=== PATIENT | female | born 1955 ===

== ENCOUNTER 2019-06-24 17:01 | Inpatient (IN) ==
[2019-06-24] MEDS ORDERED: *HR* HYDROmorphone (PF) 1 MG/ML SYRINGE IVP PRN (18:00)
[2019-06-24] MEDS ORDERED: Ondansetron 4 MG/2 ML VIAL IVP PRN (18:18)
[2019-06-24] MEDS ORDERED: *HR* OxyCODONE Immed Rel 5 MG TABLET PO PRN (18:18)
[2019-06-24] MEDS ORDERED: Naloxone 0.4 MG/ML INJ IVP PRN (18:18)
[2019-06-24 18:31] LABS: Hematocrit 37.6 % (35.3-44.9); Hemoglobin 12.4 g/dL (11.5-15.4); Mean Corpuscular Hemoglobin 28.6 pg (28.0-33.3); Mean Corpuscular Volume 86.6 fL (83.0-100.0); Mean Platelet Volume 8.5 fL (9.4-12.4); Platelet Count 193 K/mcL (140-400); Red Blood Count 4.34 M/mcL (3.82-4.97); Red Cell Distribution Width 14.6 % (11.5-14.5); White Blood Count 8.4 K/mcL (4.3-11.1)
[2019-06-24 18:51] LABS: Alanine Aminotransferase 31 Units/L (7-52); Albumin 3.4 g/dL (3.5-5.7); Albumin/Globulin Ratio 1.4 (1.1-2.2); Alkaline Phosphatase 77 Units/L (34-104); Aspartate Amino Transferase 18 Units/L (13-39); BUN/Creatinine Ratio 13 (6-26); Bilirubin,Direct 0.2 mg/dL (0.0-0.2); Bilirubin,Indirect 0.5 mg/dL (0.0-1.2); Bilirubin,Total 0.7 mg/dL (0.3-1.0); Blood Urea Nitrogen 9 mg/dL (8-23); Calcium 8.3 mg/dL (8.6-10.3); Carbon Dioxide 34 mEq/L (23-29); Chloride 98 mEq/L (98-107); Globulin 2.4 g/dL (2.4-3.5); Glucose 194 mg/dL (70-105); Lipase 404 Units/L (11-82); Magnesium 1.8 mg/dL (1.6-2.6); Osmolality,Calculated 292 (280-300); Potassium 2.6 mEq/L (3.5-5.1); Sodium 139 mEq/L (136-145); Total Protein 5.8 g/dL (6.4-8.9); eGFR For African Americans > 60 (> 60); eGFR For Non-African Americans > 60 (> 60)
[2019-06-24 19:42] LABS: Chol/HDL Ratio 6.3 (0-4.9); Cholesterol 175 mg/dL (< 200); HDL Cholesterol 28 mg/dL (40-59); LDL Cholesterol,Calculated 104 mg/dL (0-99); Triglycerides 215 mg/dL (< 150)
[2019-06-24] MEDS: Ketorolac 30 MG/ML VIAL IVP PRN (19:44)
[2019-06-24] MEDS: cefTRIAXone 1,000 MG in Water for inj. (sterile) 10 ML IVP SCH (19:46)
[2019-06-24] MEDS: Ringers Solution, Lactated 1,000 ML IVC SCH (19:50)
[2019-06-25] MEDS: Ringers Solution, Lactated 1,000 ML IVC SCH ×4 (00:50→21:53)
[2019-06-25] MEDS: Nicotine 7 MG PATCH.TD24 TD SCH ×2 (01:19→08:10)
[2019-06-25] MEDS: Ketorolac 30 MG/ML VIAL IVP PRN ×3 (01:48→20:15)
[2019-06-25] MEDS: *HR* Heparin 5,000 UNIT/ML VIAL SQ SCH ×2 (04:20→17:43)
[2019-06-25 06:18] LABS: Basophils # 0.1 K/mcL (0.0-0.2); Basophils % 0.8 %; Eosinophils # 0.3 K/mcL (0.0-0.6); Eosinophils % 4.3 %; Hematocrit 39.9 % (35.3-44.9); Hemoglobin 12.5 g/dL (11.5-15.4); Immature Granulocytes % 0.5 % (0-4); Lymphocytes # 1.6 K/mcL (0.6-4.6); Lymphocytes % 25.4 %; Mean Corpuscular HGB Conc 31.3 g/dL (31.6-35.5); Mean Corpuscular Hemoglobin 27.8 pg (28.0-33.3); Mean Corpuscular Volume 88.9 fL (83.0-100.0); Mean Platelet Volume 8.5 fL (9.4-12.4); Monocytes # 0.5 K/mcL (0.0-1.3); Monocytes % 8.4 %; Neutrophils # 3.8 K/mcL (1.6-8.9); Platelet Count 206 K/mcL (140-400); Red Blood Count 4.49 M/mcL (3.82-4.97); Red Cell Distribution Width 14.6 % (11.5-14.5); Segmented Neutrophils % 60.6 %; White Blood Count 6.3 K/mcL (4.3-11.1)
[2019-06-25 06:37] LABS: BUN/Creatinine Ratio 13 (6-26); Blood Urea Nitrogen 11 mg/dL (8-23); Calcium 8.5 mg/dL (8.6-10.3); Carbon Dioxide 36 mEq/L (23-29); Chloride 100 mEq/L (98-107); Glucose 169 mg/dL (70-105); Magnesium 1.8 mg/dL (1.6-2.6); Osmolality,Calculated 297 (280-300); Phosphorous 2.7 mg/dL (2.7-4.5); Potassium 2.8 mEq/L (3.5-5.1); Sodium 142 mEq/L (136-145); eGFR For African Americans > 60 (> 60); eGFR For Non-African Americans > 60 (> 60)
[2019-06-25] MEDS ORDERED: *HR* HYDROmorphone (PF) 1 MG/ML SYRINGE IVP PRN (09:00)
[2019-06-25] MEDS ORDERED: Potassium Chloride 40 MEQ, Lidocaine 1% 2 ML in 0.9 % Sodium Chloride 500 ML IVPB ONE ×2 (09:12→16:57)
[2019-06-25] MEDS: cefTRIAXone 1,000 MG in Water for inj. (sterile) 10 ML IVP SCH (17:44)
[2019-06-26] MEDS: *HR* Heparin 5,000 UNIT/ML VIAL SQ SCH (04:23)
[2019-06-26] MEDS: Ketorolac 30 MG/ML VIAL IVP PRN ×3 (04:41→20:07)
[2019-06-26 06:30] LABS: Hematocrit 38.5 % (35.3-44.9); Hemoglobin 12.1 g/dL (11.5-15.4); Mean Corpuscular HGB Conc 31.4 g/dL (31.6-35.5); Mean Corpuscular Hemoglobin 28.7 pg (28.0-33.3); Mean Corpuscular Volume 91.2 fL (83.0-100.0); Mean Platelet Volume 8.8 fL (9.4-12.4); Platelet Count 228 K/mcL (140-400); Red Blood Count 4.22 M/mcL (3.82-4.97); Red Cell Distribution Width 14.6 % (11.5-14.5)
[2019-06-26 06:53] LABS: BUN/Creatinine Ratio 10 (6-26); Blood Urea Nitrogen 7 mg/dL (8-23); Calcium 8.3 mg/dL (8.6-10.3); Carbon Dioxide 31 mEq/L (23-29); Chloride 100 mEq/L (98-107); Glucose 196 mg/dL (70-105); Magnesium 1.7 mg/dL (1.6-2.6); Osmolality,Calculated 295 (280-300); Potassium 3.1 mEq/L (3.5-5.1); Sodium 141 mEq/L (136-145); eGFR For African Americans > 60 (> 60); eGFR For Non-African Americans > 60 (> 60)
[2019-06-26] MEDS ORDERED: *HR* FentaNYL (PF) 100 MCG/2 ML VIAL ONE (07:24)
[2019-06-26] MEDS ORDERED: *HR* Propofol 200 MG/20 ML VIAL IVP ONE (07:24)
[2019-06-26] MEDS ORDERED: *HR* Midazolam HCl 2 MG/2 ML VIAL ONE (07:24)
[2019-06-26] MEDS ORDERED: *HR* Atropine Sulfate 8 MG/20 ML VIAL IVP ONE (07:35)
[2019-06-26] MEDS ORDERED: Albuterol 2.5 MG/3 ML NEBULIZER IH ONE (07:36)
[2019-06-26] MEDS ORDERED: Potassium Chloride 40 MEQ, Lidocaine 1% 2 ML in 0.9 % Sodium Chloride 500 ML IVPB ONE ×2 (07:46→09:40)
[2019-06-26] MEDS ORDERED: *HR* HYDROmorphone (PF) 1 MG/ML SYRINGE IVP PRN (07:49)
[2019-06-26] MEDS ORDERED: Dexamethasone 4 MG/ML VIAL ONE (07:53)
[2019-06-26] MEDS ORDERED: Acetaminophen IV 1,000 MG/100 ML INFUS..BTL ONE (07:57)
[2019-06-26] MEDS ORDERED: Ringer's Solution, Lactated 250 ML IV.SOLN IVC SCH (08:00)
[2019-06-26] MEDS ORDERED: Ringers Solution, Lactated 1,000 ML IVC SCH (08:15)
[2019-06-26] MEDS ORDERED: Lidocaine -MPF 2% 2 ML VIAL ONE (08:24)
[2019-06-26] MEDS ORDERED: Ondansetron 4 MG/2 ML VIAL ONE (08:24)
[2019-06-26] MEDS ORDERED: Naloxone 0.4 MG/ML INJ IVP PRN (09:40)
[2019-06-26] MEDS ORDERED: Ondansetron 4 MG/2 ML VIAL IVP PRN (09:40)
[2019-06-26] MEDS: Ringers Solution, Lactated 1,000 ML IVC SCH (14:01)
[2019-06-26] MEDS ORDERED: *HR* Heparin 5,000 UNIT/ML VIAL SQ SCH (18:00)
[2019-06-26] MEDS: cefTRIAXone 1,000 MG in Water for inj. (sterile) 10 ML IVP SCH (18:11)
[2019-06-26] MEDS: Nicotine 7 MG PATCH.TD24 TD SCH (19:11)
[2019-06-26] MEDS ORDERED: Melatonin 3 MG TABLET PO PRN (21:38)
[2019-06-26] MEDS ORDERED: *HR* FentaNYL (PF) 100 MCG/2 ML VIAL IVP ONE (22:42)
[2019-06-27] MEDS ORDERED: Ipratropium/Albuterol Neb 3 ML IH PRN (01:38)
[2019-06-27] MEDS ORDERED: Ipratropium/Albuterol Neb 3 ML ONE (01:45)
[2019-06-27 02:24] LABS: Hematocrit 33.7 % (35.3-44.9); Mean Corpuscular HGB Conc 31.2 g/dL (31.6-35.5); Mean Corpuscular Hemoglobin 27.9 pg (28.0-33.3); Mean Corpuscular Volume 89.6 fL (83.0-100.0); Mean Platelet Volume 9.4 fL (9.4-12.4); Platelet Count 203 K/mcL (140-400); Red Blood Count 3.76 M/mcL (3.82-4.97); Red Cell Distribution Width 14.3 % (11.5-14.5); White Blood Count 6.9 K/mcL (4.3-11.1)
[2019-06-27 02:30] LABS: Hemoglobin 10.5 g/dL (11.5-15.4)
[2019-06-27 02:41] LABS: BUN/Creatinine Ratio 13 (6-26); Blood Urea Nitrogen 14 mg/dL (8-23); Calcium 8.4 mg/dL (8.6-10.3); Carbon Dioxide 28 mEq/L (23-29); Chloride 103 mEq/L (98-107); Glucose 261 mg/dL (70-105); Osmolality,Calculated 298 (280-300); Potassium 3.5 mEq/L (3.5-5.1); Sodium 139 mEq/L (136-145); eGFR For African Americans > 60 (> 60); eGFR For Non-African Americans 51 (> 60)
[2019-06-27] MEDS ORDERED: *HR* FentaNYL (PF) 100 MCG/2 ML VIAL IVP ONE (04:12)
[2019-06-27] MEDS ORDERED: *HR* Dextrose 50 % in Water (Syg) 50 ML SYRINGE IVP PRN (07:46)
[2019-06-27] MEDS ORDERED: D5% in Water 1,000 ML IVC PRN (07:46)
[2019-06-27] MEDS ORDERED: Dextrose Gel 15 GM/37.5 ML TUBE PO PRN ×2 (07:46)
[2019-06-27] MEDS: Nicotine 7 MG PATCH.TD24 TD SCH (08:51)
[2019-06-27] MEDS: Ketorolac 30 MG/ML VIAL IVP PRN ×3 (08:54→22:49)
[2019-06-27] MEDS: Ringers Solution, Lactated 1,000 ML IVC SCH ×2 (10:06→15:15)
[2019-06-27] MEDS: Insulin LISPRO 300 UNITS/3 ML VIAL SQ SCH ×2 (12:37→18:20)
[2019-06-27] MEDS: cefTRIAXone 1,000 MG in Water for inj. (sterile) 10 ML IVP SCH (18:14)
[2019-06-28] MEDS: Ringers Solution, Lactated 1,000 ML IVC SCH ×2 (00:48→12:50)
[2019-06-28 04:11] LABS: Hematocrit 33.9 % (35.3-44.9); Hemoglobin 10.3 g/dL (11.5-15.4); Mean Corpuscular HGB Conc 30.4 g/dL (31.6-35.5); Mean Corpuscular Hemoglobin 28.1 pg (28.0-33.3); Mean Corpuscular Volume 92.6 fL (83.0-100.0); Mean Platelet Volume 8.9 fL (9.4-12.4); Platelet Count 223 K/mcL (140-400); Red Blood Count 3.66 M/mcL (3.82-4.97); White Blood Count 7.2 K/mcL (4.3-11.1)
[2019-06-28 04:33] LABS: BUN/Creatinine Ratio 17 (6-26); Blood Urea Nitrogen 18 mg/dL (8-23); Calcium 8.3 mg/dL (8.6-10.3); Carbon Dioxide 31 mEq/L (23-29); Chloride 104 mEq/L (98-107); Glucose 167 mg/dL (70-105); Osmolality,Calculated 300 (280-300); Potassium 3.2 mEq/L (3.5-5.1); Sodium 142 mEq/L (136-145); eGFR For African Americans > 60 (> 60); eGFR For Non-African Americans 53 (> 60)
[2019-06-28] MEDS: Ketorolac 30 MG/ML VIAL IVP PRN (06:09)
[2019-06-28] MEDS ORDERED: Potassium Chloride Elixir 20 MEQ/15 ML UDC PO ONE (07:51)
[2019-06-28] MEDS: Insulin LISPRO 300 UNITS/3 ML VIAL SQ SCH ×3 (09:00→17:03)
[2019-06-28] MEDS: Nicotine 7 MG PATCH.TD24 TD SCH (09:01)
[2019-06-28] MEDS: *HR* HYDROcodone/Acet 5/325 mg TABLET PO SCH ×4 (09:01→19:59)
[2019-06-28] MEDS: Ipratropium/Albuterol Neb 3 ML IH SCH ×3 (10:40→21:52)
[2019-06-28] MEDS ORDERED: Ringers Solution, Lactated 1,000 ML ONE (12:23)
[2019-06-28] MEDS: Gabapentin 400 MG CAPSULE PO SCH ×2 (15:20→19:59)
[2019-06-28 20:09] VITALS: BP 123/80
[2019-06-29] MEDS: Ringers Solution, Lactated 1,000 ML IVC SCH (03:20)
[2019-06-29] MEDS: Ipratropium/Albuterol Neb 3 ML IH SCH ×2 (03:50→10:40)
[2019-06-29 04:49] LABS: Hemoglobin 10.4 g/dL (11.5-15.4); Mean Corpuscular HGB Conc 30.6 g/dL (31.6-35.5); Mean Corpuscular Hemoglobin 28.2 pg (28.0-33.3); Mean Corpuscular Volume 92.1 fL (83.0-100.0); Mean Platelet Volume 8.6 fL (9.4-12.4); Platelet Count 229 K/mcL (140-400); Red Blood Count 3.69 M/mcL (3.82-4.97); Red Cell Distribution Width 15.4 % (11.5-14.5); White Blood Count 6.5 K/mcL (4.3-11.1)
[2019-06-29 05:09] LABS: BUN/Creatinine Ratio 15 (6-26); Blood Urea Nitrogen 17 mg/dL (8-23); Calcium 8.6 mg/dL (8.6-10.3); Carbon Dioxide 29 mEq/L (23-29); Chloride 104 mEq/L (98-107); Glucose 229 mg/dL (70-105); Magnesium 1.7 mg/dL (1.6-2.6); Osmolality,Calculated 299 (280-300); Potassium 3.6 mEq/L (3.5-5.1); Sodium 140 mEq/L (136-145); eGFR For African Americans > 60 (> 60); eGFR For Non-African Americans 50 (> 60)
[2019-06-29] MEDS: Nicotine 7 MG PATCH.TD24 TD SCH (08:09)
[2019-06-29] MEDS: Gabapentin 400 MG CAPSULE PO SCH (08:10)
[2019-06-29] MEDS: *HR* HYDROcodone/Acet 5/325 mg TABLET PO SCH (08:10)
[2019-06-29] MEDS: Insulin LISPRO 300 UNITS/3 ML VIAL SQ SCH (10:01)
[2019-06-29 21:50] LABS: Calculi Mass 108 mg
== END 2019-06-29 11:06 | disposition home or self-care (01) | DRG 659 ==
LOC: 3ANU → SUATTDRO 17:02
PROVIDERS: ADMIT Internal Medicine Nephrology; ATTEND Internal Medicine

== ENCOUNTER 2019-07-10 18:07 | Inpatient (IN) ==
[2019-07-10] MEDS ORDERED: Naloxone 0.4 MG/ML INJ IVP PRN (20:41)
[2019-07-10] MEDS ORDERED: Ondansetron 4 MG/2 ML VIAL IVP PRN (20:41)
[2019-07-10] MEDS ORDERED: D5% in Water 1,000 ML IVC PRN (20:44)
[2019-07-10] MEDS ORDERED: Dextrose Gel 15 GM/37.5 ML TUBE PO PRN ×2 (20:44)
[2019-07-10] MEDS ORDERED: *HR* Dextrose 50 % in Water (Syg) 50 ML SYRINGE IVP PRN (20:44)
--- NOTE | 2019-07-10 20:49 | Internal Med History&Physical ---
Date of Encounter: 07/10/19 Time of Encounter: 20:35 Internal Medicine - H&P: HPI Chief complaint: Pancreatitis Admitted From: Hospital to Hospital Transfer Plans for Post Hospital Care: Home History of present illness: Ms. Douglas is a 63 year old female Patient states she began having abdominal pain while at rest watching TV. She has a history of pancreatitis, pain is located in the epigastric area and is a burning quality. She also has a history of alcohol use, but states she has not had alcohol in over a week. She was recently here at [facility] and discharged on June 21. She is treated for a kidney stone, pancreatitis and UTI. She was discharged and was to follow-up with urology for stent removal. She came to [facility] for further evaluation. Vital signs at [facility]: Blood pressure 194/103, pulse 94, restaurant rate 18, temperature 97.1, O2 saturation 96% on room air. Labs from [facility]: CBC: White count 7.6, hemoglobin 14.8, platelets 352. BMP: Sodium 137, potassium 3.9, chloride 100, bicarbonate 29, BUS 11, creatinine 0.896, blood sugar 294. Lipase 3199 Amylase 109 Total bilirubin 0.6 ALT 38 AST 26 Alkaline phosphatase 136 Lactic acid 1.7 Urinalysis: White count 1-6, 30 protein, negative blood, negative nitrite, small leukocyte esterase. EKG: Sinus rhythm, rate 93, QTC [address] changes. Patient was given pain medicine as well as antinausea medicine. She was transferred to [facility] for further management. Upon my evaluation, patient states that she is still having abdominal pain. She denies chest pain, diarrhea and constipation. She does have some nausea but has not had any vomiting. Her pain is centered in the epigastric region with some pain in the upper left and upper right regions as well. She has had pain like this in the past with previous episodes of pancreatitis. She states that she drinks about 1 pint of alcohol per week, but has not had any alcohol in over a week. She smokes 1-1/2 packs of cigarettes daily. She declines a nicotine patch. She is a DNR/DNI. Past Med Surg Social Fam HX - Past Medical History Medical history: COPD, hypertension Additional medical history: Lymphoma Psychiatric history: no psych history - Past Surgical History Surgical History: cholecystectomy Additional surgical history: back, herniated naverl, lump on left breast, Saliva gland removal, Lymphoma - Social History Smoking Status: Current every day smoker Packs per day: 1 / Alcohol use: occasionally Drug use: none - Family History Mother Hx Family Cardiac Disorders: Yes Internal Medicine - H&P: Meds Gabapentin 800 mg PO TID 06/24/19 [History] Lisinopril [Zestril] 40 mg PO DAILY 06/24/19 [History] Metoprolol Tartrate 75 mg PO BID 06/24/19 [History] HYDROcodone/Acet 5/325 mg [[place] 5-325 mg] 1 tab PO QID 4 Days #16 tablet 06/29/19 [Rx] Allergy/AdvReac Type Severity Reaction Status Date / Time ibuprofen [From Motrin] Allergy Anaphylaxis Verified 06/24/19 19:03 Iodinated Contrast Media Allergy Unresponsiv Verified 07/10/19 22:41 e prochlorperazine Allergy Swelling Verified 07/10/19 22:41 [From Compazine] of Lip/Tongue/Throat All Systems PM: A 10-system review of systems was performed and is negative for pertinent findings except as documented above in the HPI. - Constitutional Vitals: Temp Pulse Resp BP Pulse Ox 98.3 F 86 15 144/90 96 07/10/19 20:09 07/10/19 20:09 07/10/19 20:09 07/10/19 20:09 07/10/19 20:09 General appearance: Present: cooperative, mild distress, A&O X 3, pleasant, answers questions appropriately Exam: - - Head Head exam: Present: normal inspection - Eye Eye exam: Present: EOMI, normal appearance - Respiratory Respiratory exam: Present: CTAB. Absent: rales, respiratory distress, rhonchi, wheezes - Cardiovascular Cardiovascular exam: Present: RRR. Absent: diastolic murmur, systolic murmur - GI/Abdominal GI/Abdominal exam: Present: normal bowel sounds, soft, tenderness Additional comments: Epigastric tenderness, mild lower abdominal pain with palpation - Extremities Exam Extremities exam: Present: warm, radial pulses palpable and symmetrical. Absent: calf tenderness, pedal edema, tenderness - Neurological Exam Neurological exam: Present: no focal deficits. Absent: motor sensory deficit, facial droop, speech deficit - Skin Skin exam: Present: dry, normal color, warm - Assessment and Plan (1) Pancreatitis Current Visit: No Status: Acute Assessment and plan: Patient presents again with pancreatitis. Significantly elevated lipase from previous level at 3199. No abdominal imaging obtained at [facility]. Patient denies recent alcohol use. Her last drink she says was over a week ago. Does have some abdominal distension as well that she states in not normal. She has regular bowel movements. Obtain abdominal/pelvic CT Nothing by mouth Pain management as needed IV fluid hydration Zofran for nausea as needed Qualifiers: Chronicity: acute Pancreatitis type: idiopathic Acute pancreatitis complication: no infection or necrosis Qualified Code(s): K85.00 - Idiopathic acute pancreatitis without necrosis or infection (2) Hyperglycemia Current Visit: Yes Status: Acute Assessment and plan: Patient has had elevated blood sugar during each of her previous visits. We do not have an A1c on file, patient denies history of diabetes. Check A1c in the morning Subcutaneous insulin as needed Monitor blood sugars every 6 hours (3) S/P ureteral stent placement Current Visit: No Status: Acute Assessment and plan: Patient was scheduled to have a ureteral stent removed tomorrow. Urology consult in the morning (4) Alcohol abuse Current Visit: Yes Status: Acute Assessment and plan: Patient admits to drinking a pint of alcohol weekly, but says she has not had any alcohol for over a week. No signs of withdrawal. Avoid further alcohol use to prevent future pancreatitis episodes (5) Tobacco abuse Current Visit: No Status: Acute Assessment and plan: Patient declines nicotine patch (6) CVD (cardiovascular disease) Current Visit: Yes Status: Acute Assessment and plan: Based on patient's age, lipid panel, history of hypertension, possible diabetes, and smoking history patient has a greater than 20% chance of an adverse cardiovascular event within the next 10 years. Recommend patient start on statin therapy and aspirin at discharge. Follow up A1c in the morning. (7) DVT prophylaxis Current Visit: No Status: Acute Assessment and plan: Subcutaneous heparin - Time Spent With Patient Total time spent is greater than 50% in coordination of care (as documented) at patient's floor/unit and/or counseling patient: Greater than 35 minutes
[2019-07-10] MEDS: 0.9 % Sodium Chloride 1,000 ML IVC SCH (20:57)
[2019-07-10] MEDS ORDERED: Isovue-370 500 ML BOTTLE IVP ONE (22:23)
[2019-07-10] MEDS: Ketorolac 30 MG/ML VIAL IVP PRN (22:45)
[2019-07-11] MEDS: Insulin LISPRO 300 UNITS/3 ML VIAL SQ SCH ×4 (00:54→18:07)
[2019-07-11] MEDS: 0.9 % Sodium Chloride 1,000 ML IVC SCH (04:13)
[2019-07-11 05:09] LABS: Basophils # 0.1 K/mcL (0.0-0.2); Basophils % 1.5 %; Eosinophils # 0.3 K/mcL (0.0-0.6); Eosinophils % 4.1 %; Hematocrit 39.5 % (35.3-44.9); Hemoglobin 12.2 g/dL (11.5-15.4); Immature Granulocytes % 0.4 % (0-4); Lymphocytes # 2.1 K/mcL (0.6-4.6); Lymphocytes % 29.5 %; Mean Corpuscular HGB Conc 30.9 g/dL (31.6-35.5); Mean Corpuscular Hemoglobin 27.2 pg (28.0-33.3); Mean Corpuscular Volume 88.2 fL (83.0-100.0); Monocytes # 0.7 K/mcL (0.0-1.3); Monocytes % 10.2 %; Neutrophils # 3.9 K/mcL (1.6-8.9); Platelet Count 320 K/mcL (140-400); Red Blood Count 4.48 M/mcL (3.82-4.97); Red Cell Distribution Width 14.6 % (11.5-14.5); Segmented Neutrophils % 54.3 %; White Blood Count 7.2 K/mcL (4.3-11.1)
[2019-07-11 05:26] LABS: Alanine Aminotransferase 21 Units/L (7-52); Albumin 3.4 g/dL (3.5-5.7); Albumin/Globulin Ratio 1.6 (1.1-2.2); Alkaline Phosphatase 83 Units/L (34-104); Aspartate Amino Transferase 16 Units/L (13-39); BUN/Creatinine Ratio 18 (6-26); Bilirubin,Total 0.5 mg/dL (0.3-1.0); Blood Urea Nitrogen 14 mg/dL (8-23); Calcium 8.3 mg/dL (8.6-10.3); Carbon Dioxide 27 mEq/L (23-29); Chloride 106 mEq/L (98-107); Globulin 2.1 g/dL (2.4-3.5); Glucose 136 mg/dL (70-105); Osmolality,Calculated 293 (280-300); Potassium 3.3 mEq/L (3.5-5.1); Sodium 140 mEq/L (136-145); Total Protein 5.5 g/dL (6.4-8.9); eGFR For African Americans > 60 (> 60); eGFR For Non-African Americans > 60 (> 60)
--- NOTE | 2019-07-11 07:36 | Urology - Consult Note ---
Date of Encounter: 07/11/19 Time of Encounter: 07:36 - Assessment and Plan (1) Nephrolithiasis Current Visit: No Status: Resolved Assessment and plan: I reviewed the CT scan images. She does have bilateral nonobstructing renal c alculi. I did not appreciate any ureteral calculi. With the current nature of her pain, I suspect her discomfort to be related to acute pancreatitis rather than the urolithiasis. I feel observation is best from a urology standpoint. We will continue to follow the patient while hospitalized. Urology CN:HPI Consult date: 07/11/19 History of present illness: patient known to the urology service. Status post a right ureteroscopic stone extraction recently by Dr. Deluca. Currently admitted with abdominal pain. CT scan shows bilateral nonobstructing stones. No ureteral stones appreciated. She again has acute pancreatitis. She states that the pain is different from previous kidney stone pain. She denies any dysuria or gross hematuria. IMPRESSION: 1. Persistent findings of acute pancreatitis. 2. Bilateral intrarenal calculi with no obstructive uropathy. 3. Diverticulosis without scan evidence for diverticulitis. Past Med Surg Social Fam HX - Past Medical History Medical history: COPD, hypertension Additional medical history: Lymphoma Psychiatric history: no psych history - Past Surgical History Surgical History: cholecystectomy Additional surgical history: back, herniated naverl, lump on left breast, Saliva gland removal, Lymphoma - Social History Smoking Status: Current every day smoker Packs per day: 1 1/2 Alcohol use: occasionally Drug use: none - Family History Mother Hx Family Cardiac Disorders: Yes Medications and Allergies Gabapentin 800 mg PO TID 06/24/19 [History] Lisinopril [Zestril] 40 mg PO DAILY 06/24/19 [History] Metoprolol Tartrate 75 mg PO BID 06/24/19 [History] Allergy/AdvReac Type Severity Reaction Status Date / Time ibuprofen [From Motrin] Allergy Anaphylaxis Verified 06/24/19 19:03 Iodinated Contrast Media Allergy Unresponsiv Verified 07/10/19 22:41 e prochlorperazine Allergy Swelling Verified 07/10/19 22:41 [From Compazine] of Lip/Tongue/Throat Review of Systems - Constitutional fatigue, no fever(s) - EENT Nose, mouth and throat: no dizziness - Cardiovascular no chest pain - Respiratory no cough - Gastrointestinal abdominal pain - Genitourinary Genitourinary: flank pain (Right) - Musculoskeletal back pain - Integumentary no erythema - Neurological confusion - Psychiatric no anxiety - Hematologic/Lymphatic no easy bleeding - Allergic/Immunologic no throat swelling Exam Initial Vital Signs Temp Pulse Resp BP Pulse Ox 98.3 F 86 15 144/90 96 07/10/19 20:09 07/10/19 20:09 07/10/19 20:07/10/19 20:07/10/19 20:09 - General physical appearance Present: well developed, no distress, no pain - Eyes Present: PERRL, conjunctiva is clear - ENT Present: normal nares - Neck Present: no masses - Respiratory Present: normal respiratory effort - Cardiovascular Cardiovascular exam IM: RRR - Abdomen Abdomen: Present: soft, tender (But benign), suprapubic tenderness - Neurologic Present: normal coordination. Absent: disoriented, confused Urology Results - Labs 07/11/19 04:49 07/11/19 04:49 Abnormal lab results MCH 27.2 pg (28.0-33.3) L 07/11/19 04:49 MCHC 30.9 g/dL (31.6-35.5) L 07/11/19 04:49 RDW 14.6 % (11.5-14.5) H 07/11/19 04:49 MPV 9.0 fL (9.4-12.4) L 07/11/19 04:49 Potassium 3.3 mEq/L (3.5-5.1) L 07/11/19 04:49 Glucose 136 mg/dL (70-105) H 07/11/19 04:49 POC Glucose 177 mg/dL (70-99) H 07/11/19 00:45 Calcium 8.3 mg/dL (8.6-10.3) L 07/11/19 04:49 Serum Total Protein 5.5 g/dL (6.4-8.9) L 07/11/19 04:49 Albumin 3.4 g/dL (3.5-5.7) L 07/11/19 04:49 Globulin 2.1 g/dL (2.4-3.5) L 07/11/19 04:49 Diabetes panel 07/11/19 Range/Units 04:49 Sodium 140 (136-145) mEq/L Potassium 3.3 L (3.5-5.1) mEq/L Chloride 106 (98-107) mEq/L Carbon Dioxide 27 (23-29) mEq/L BUN 14 (8-23) mg/dL Creatinine 0.80 (0.60-1.20) mg/dL Glucose 136 H (70-105) mg/dL Calcium 8.3 L (8.6-10.3) mg/dL AST 16 (13-39) Units/L ALT 21 (7-52) Units/L Alkaline Phosphatase 83 (34-104) Units/L Albumin 3.4 L (3.5-5.7) g/dL Calcium panel 07/11/19 Range/Units 04:49 Calcium 8.3 L (8.6-10.3) mg/dL Albumin 3.4 L (3.5-5.7) g/dL Pituitary panel 07/11/19 Range/Units 04:49 Sodium 140 (136-145) mEq/L Potassium 3.3 L (3.5-5.1) mEq/L Chloride 106 (98-107) mEq/L Carbon Dioxide 27 (23-29) mEq/L BUN 14 (8-23) mg/dL Creatinine 0.80 (0.60-1.20) mg/dL Glucose 136 H (70-105) mg/dL Calcium 8.3 L (8.6-10.3) mg/dL Adrenal panel 07/11/19 Range/Units 04:49 Sodium 140 (136-145) mEq/L Potassium 3.3 L (3.5-5.1) mEq/L Chloride 106 (98-107) mEq/L Carbon Dioxide 27 (23-29) mEq/L BUN 14 (8-23) mg/dL Creatinine 0.80 (0.60-1.20) mg/dL Glucose 136 H (70-105) mg/dL Calcium 8.3 L (8.6-10.3) mg/dL Total Bilirubin 0.5 (0.3-1.0) mg/dL AST 16 (13-39) Units/L ALT 21 (7-52) Units/L Alkaline Phosphatase 83 (34-104) Units/L Albumin 3.4 L (3.5-5.7) g/dL All other labs normal. Consult Discharge Plan - Plan Referrals: Milton Deng [Primary Care Provider] -
[2019-07-11] MEDS ORDERED: Potassium Chloride 40 MEQ, Lidocaine 1% 2 ML in 0.9 % Sodium Chloride 500 ML IVPB ONE (07:43)
[2019-07-11 08:36] LABS: Estimated Average Glucose 220 mg/dl
[2019-07-11] MEDS: Ringers Solution, Lactated 1,000 ML IVC SCH ×2 (08:40→18:56)
[2019-07-11] MEDS: Ketorolac 30 MG/ML VIAL IVP PRN ×3 (08:40→23:03)
--- NOTE | 2019-07-11 10:50 | Gastroenterology Consult Note ---
Date of Encounter: 07/11/19 Time of Encounter: 10:45 - Assessment and plan (1) Acute pancreatitis Current Visit: Yes Status: Acute Assessment and plan: Ms. Douglas has history of pancreatitis recently admitted on 06/24/19 for acute pancreatitis Abdominal ultrasound at last admission did not show any biliary dilation does have history of cholecystectomy At outside facility lipase was 3199 CT of the abdomen and pelvis at [facility] shows acute pancreatitis Continue IV fluids with pain management Triglycerides were elevated during last pancreatitis attack Would recommend restarting diet soon as patient can tolerate If diet cannot be restarted in the next 24-48 hours would recommend Dobbhoff for feeding Will check IgG4 and SEFERINO Recommend spirometry to prevent pulmonary sequela Qualifiers: Pancreatitis type: alcohol induced Acute pancreatitis complication: no infection or necrosis Qualified Code(s): K85.20 - Alcohol induced acute pancreatitis without necrosis or infection - Time Spent With Patient Total time spent is greater than 50% in coordination of care (as documented) at patient's floor/unit and/or counseling patient: GI History of Present Illness - Data of Consult Requesting Physician: Mateo La - Consult Narrative History of present illness: Ms. Douglas is a 63 year old female with past medical history of COPD, lymphoma and hypertension who presents to the ED at [facility] complaining of epigastric pain, the pain is described as constant without any radiation. She was recently admitted for pancreatitis on 06/24/19 at that time had abdominal ultrasound which showed no bile duct dilation showed fatty infiltration liver and pancreas could not be visualized due to body habitus. She is complaining of diffuse epigastric pain with nausea denying any emesis. She is additionally denies fever, chills, shortness of breath or chest pain. In the ED showed a CT of the abdomen and pelvis which showed persistent findings of acute pancreatitis. At outside facility her lipase was noted to be 3199. Her white count was 7.6. She reports drinking a pint of liquor 3 days ago and her epigastric pain has been ongoing for 1 week and has worsened in the past 2 days. Past Med Surg Social Fam HX - Past Medical History Medical history: COPD, hypertension Additional medical history: Lymphoma Psychiatric history: no psych history - Past Surgical History Surgical History: cholecystectomy Additional surgical history: back, herniated naverl, lump on left breast, Saliva gland removal, Lymphoma - Social History Smoking Status: Current every day smoker Packs per day: 1 11/03 Alcohol use: occasionally Drug use: none - Family History Mother Hx Family Cardiac Disorders: Yes - Gastrointestinal Gastrointestinal: Present: abdominal pain (epigastric), nausea. Absent: diarrhea, vomiting - EENT Nose, mouth and throat: Absent: dysphagia, sore throat - Cardiovascular Cardiovascular ROS: Absent: chest pain, palpitations - Respiratory Respiratory IM: Absent: cough, dyspnea, hemoptysis - Genitourinary Genitourinary: Absent: change in color, Urinary frequency - Neurological ROS Neurological GI: Absent: confusion, weakness - Musculoskeletal Musculoskeletal ROS GI: Absent: back pain, joint swelling - Integumentary Integumentary GI: Absent: pruritis, rash - Constitutional Vitals: Temp Pulse Resp BP Pulse Ox 98.4 F 68 16 132/75 92 07/11/19 10:29 07/11/19 10:29 07/11/19 10:29 07/11/19 10:29 07/11/19 10:29 - Head Head exam: Present: atraumatic, normal inspection - Eye Eye exam: Present: EOMI, sclera anicteric. Absent: conjunctival injection - ENT ENT exam: Present: mucous membranes moist, normal oropharynx - Neck Neck exam general surgery: Present: full ROM, trachea midline. Absent: tenderness - Respiratory Respiratory exam: Present: CTAB. Absent: rhonchi, wheezes - Cardiovascular Cardiovascular exam: Present: RRR, +S1, +S2 - GI/Abdominal GI/Abdominal exam: Present: normal bowel sounds, soft. Absent: tenderness - Extremities Exam Extremities exam: Present: full ROM, warm. Absent: pedal edema - Psychiatric Psychiatric exam: Present: normal affect, normal mood - Skin Skin exam: Present: dry, intact Results - Labs CBC & Chem 7: 07/11/19 04:49 07/11/19 04:49 Labs: Last Result 07/11/19 04:49 Calcium 8.3 L Entire Visit 07/11/19 07/11/19 04:49 04:49 Hgb 12.2 Hct 39.5 Total Bilirubin 0.5 AST 16 ALT 21 - Impressions Impressions Abdomen/Pelvis CT 07/11/19 00:00 IMPRESSION: 1. Persistent findings of acute pancreatitis. 2. Bilateral intrarenal calculi with no obstructive uropathy. 3. Diverticulosis without scan evidence for diverticulitis. D/ / Javed Johnson MD / Javed Johnson MD Interpreting Provider: Javed Johnson MD Consult Discharge Plan - Plan Referrals: Milton Deng [Primary Care Provider] -
--- NOTE | 2019-07-11 11:24 | Internal Med Progress Note ---
Hospitalist Progress Note - Encounter Date of Encounter: 07/11/19 Time of Encounter: 08:40 - Subjective Interval History: Patient was seen this morning. She is a complaining about epigastric pain. She also referred to a pain in her right flank area. She had no nausea/vomiting or chest pain. She has no fever, chills or night sweats. - Exam Vitals: Temp Pulse Resp BP Pulse Ox 98.4 F 68 16 132/75 92 07/11/19 10:29 07/11/19 10:29 07/11/19 10:29 07/11/19 10:07/11/19 10:29 Exam: General: Patient is alert, oriented 3. mild distress Head: Atraumatic, normal inspection, normocephalic. Eye: EOMI, PERRLA ENT: Mucous membranes moist. Neck: Normal inspection, Respiratory: No respiratory distress, rhonchi, or wheezes noted. Cardiovascular: Regular rate and regular rhythm, GI: Soft, nondistended, normal bowel sounds. mild epigastric tenderness with palpation Extremities:No joint swelling, pedal edema, or tenderness noted. Neurological: Alert, oriented 3, no focal deficits. Psychiatric: normal affect, normal mood. Skin: Dry, intact, warm. Normal color. No rashes. - Assessment and Plan (1) Pancreatitis Current Visit: Yes Status: Acute (2) Tobacco abuse Current Visit: Yes Status: Chronic (3) DVT prophylaxis Current Visit: Yes Status: Acute (4) S/P ureteral stent placement Current Visit: No Status: Chronic (5) Alcohol abuse Current Visit: Yes Status: Acute (6) CVD (cardiovascular disease) Current Visit: Yes Status: Acute (7) Hypokalemia Current Visit: Yes Status: Acute - Summary of Assessment and Plan Summary of Assessment and Plan: Ms. SOTO is a 63 year old female with history of COPD, nephrolithiasis s/p recent ureter stent placement, lymphoma, cholecystectomy, tobacco abuse who came into the hospital from outside facility due to her abdominal pain. She was found to have pancreatitis. Her symptoms are measures following: Acute pancreatitis: 2nd episode in on month - Unknown etiology at this point, Lisinopril ?? etoh?? She drinks 2 pines of etoh a week, no drinks since last week. LFTs, TG and Ca were normal. - GI is consulted for recurrent pancreatitis, keep IVF, pain management with toradol for mild to moderate pain, percocet for severe pain. will start with clear liquid diet as soon as she can tolerate it. Nephrolithiasis: Status post ureteral stent placement last visit, CT scan without hydronephrosis. Urology is following Hypokalemia: - repleted. check BMP tomorrow. T2DM: - Likely new diagnosis, A1c 9.3. On LSSI, oral management as per outpatient provider. COPD: - Not in exacerbation. Tobacco abuse: - Consulted to quit smoking, she does not want nicotine patches DVT prophylaxis: scd - Time Spent with Patient Total time spent is greater than 50% in coordination of care (as documented) at patient's floor/unit and/or counseling patient: Plan of Care Discussed with: patient Internal Medicine: Result - Labs CBC & Chem 7: 07/11/19 04:49 07/11/19 04:49 Labs: Short CBC 07/11/19 Range/Units 04:49 WBC 7.2 (4.3-11.1) K/mcL Hgb 12.2 (11.5-15.4) g/dL Hct 39.5 (35.3-44.9) % Plt Count 320 (140-400) K/mcL Neutrophils # 3.9 (1.6-8.9) K/mcL BMP 07/11/19 04:49 Sodium 140 Potassium 3.3 L Chloride 106 Carbon Dioxide 27 BUN 14 Creatinine 0.80 Glucose 136 H Calcium 8.3 L Liver Function 07/11/19 Range/Units 04:49 Total Bilirubin 0.5 (0.3-1.0) mg/dL AST 16 (13-39) Units/L ALT 21 (7-52) Units/L Alkaline Phosphatase 83 (34-104) Units/L Albumin 3.4 L (3.5-5.7) g/dL - Impressions Impressions Abdomen/Pelvis CT 07/11/19 00:00 IMPRESSION: 1. Persistent findings of acute pancreatitis. 2. Bilateral intrarenal calculi with no obstructive uropathy. 3. Diverticulosis without scan evidence for diverticulitis. D/ / Javed Johnson MD / Javed Johnson MD Interpreting Provider: Javed Johnson MD Consult Discharge Plan - Plan Referrals: Milton Deng [Primary Care Provider] - (1) Pancreatitis Qualifiers: Chronicity: acute Pancreatitis type: idiopathic Acute pancreatitis complication: no infection or necrosis Qualified Code(s): K85.00 - Idiopathic acute pancreatitis without necrosis or infection
[2019-07-11] MEDS: *HR* Heparin 5,000 UNIT/ML VIAL SQ SCH (17:57)
[2019-07-12] MEDS: Insulin LISPRO 300 UNITS/3 ML VIAL SQ SCH ×5 (00:46→21:35)
[2019-07-12 03:19] LABS: Hematocrit 38.7 % (35.3-44.9); Hemoglobin 11.9 g/dL (11.5-15.4); Mean Corpuscular HGB Conc 30.7 g/dL (31.6-35.5); Mean Corpuscular Hemoglobin 27.9 pg (28.0-33.3); Mean Corpuscular Volume 90.8 fL (83.0-100.0); Mean Platelet Volume 9.2 fL (9.4-12.4); Platelet Count 278 K/mcL (140-400); Red Blood Count 4.26 M/mcL (3.82-4.97); Red Cell Distribution Width 14.6 % (11.5-14.5); White Blood Count 5.3 K/mcL (4.3-11.1)
[2019-07-12 03:28] LABS: BUN/Creatinine Ratio 16 (6-26); Blood Urea Nitrogen 13 mg/dL (8-23); Calcium 8.2 mg/dL (8.6-10.3); Carbon Dioxide 25 mEq/L (23-29); Chloride 106 mEq/L (98-107); Glucose 129 mg/dL (70-105); Magnesium 1.7 mg/dL (1.6-2.6); Osmolality,Calculated 290 (280-300); Potassium 3.7 mEq/L (3.5-5.1); Sodium 139 mEq/L (136-145); eGFR For African Americans > 60 (> 60); eGFR For Non-African Americans > 60 (> 60)
[2019-07-12] MEDS: *HR* Heparin 5,000 UNIT/ML VIAL SQ SCH ×2 (05:04→16:38)
[2019-07-12] MEDS: Ringers Solution, Lactated 1,000 ML IVC SCH ×2 (08:00→15:30)
[2019-07-12] MEDS: Ketorolac 30 MG/ML VIAL IVP PRN (08:04)
[2019-07-12] MEDS ORDERED: *HR* LORazepam 2 MG/ML VIAL IVP PRN ×3 (08:32)
[2019-07-12] MEDS ORDERED: Ringers Solution, Lactated 1,000 ML ONE (08:37)
--- NOTE | 2019-07-12 12:09 | Internal Med Progress Note ---
Hospitalist Progress Note - Encounter Date of Encounter: 07/12/19 Time of Encounter: 10:00 - Subjective Interval History: Patient was seen this morning. She is a complaining about abdominal pain that is improving slightly with pain medication. She ate a clear liquid diet yesterday night with dinner and her breathing got worse. She denies any nausea or vomiting. - Exam Vitals: Temp Pulse Resp BP Pulse Ox 98.0 F 62 18 176/90 95 07/12/19 11:40 07/12/19 11:40 07/12/19 11:40 07/12/19 11:40 07/12/19 11:40 Exam: General: Patient is alert, oriented 3. mild distress Head: Atraumatic, normal inspection, normocephalic. Eye: EOMI, PERRLA ENT: Mucous membranes moist. Neck: Normal inspection, Respiratory: No respiratory distress, rhonchi, or wheezes noted. Cardiovascular: Regular rate and regular rhythm, GI: Soft, nondistended, normal bowel sounds. mild epigastric tenderness with palpation. No guarding or rebound. Extremities:No joint swelling, pedal edema, or tenderness noted. Neurological: Alert, oriented 3, no focal deficits. Psychiatric: normal affect, normal mood. Skin: Dry, intact, warm. Normal color. No rashes. - Assessment and Plan (1) Pancreatitis Current Visit: Yes Status: Acute (2) Tobacco abuse Current Visit: Yes Status: Chronic (3) DVT prophylaxis Current Visit: Yes Status: Acute (4) S/P ureteral stent placement Current Visit: No Status: Chronic (5) Alcohol abuse Current Visit: Yes Status: Acute (6) CVD (cardiovascular disease) Current Visit: Yes Status: Acute (7) Hypokalemia Current Visit: Yes Status: Resolved - Summary of Assessment and Plan Summary of Assessment and Plan: Ms. SOOT is a 63 year old female with history of COPD, nephrolithiasis s/p recent ureter stent placement, lymphoma, cholecystectomy, tobacco abuse who came into the hospital from outside facility due to her abdominal pain. She was found to have pancreatitis. Her symptoms are measures following: Acute pancreatitis: 2nd episode in on month - Unknown etiology at this point, Lisinopril ?? etoh?? She drinks 2 pines of etoh a week, no drinks since last week. LFTs, TG and Ca were normal. - GI is consulted for recurrent pancreatitis, keep IVF, pain management with Percocet 10 mg every 6 hours and [place] 5 mg for rate through pain every 4 hours. We will keep her nothing by mouth as she could not tolerate diet. We will try again tomorrow. Etoh abuse: - Last drink was 3-4 days ago. Started her on CIWA protocol. Consulted extensively to quit drinking Fatty liver disease: Likely related to her drinking. Nephrolithiasis: Status post ureteral stent placement last visit, CT scan without hydronephrosis. Urology is following Hypokalemia: repleted. check BMP tomorrow. T2DM: Likely new diagnosis, A1c 9.3. On LSSI, oral management as per outpatient provider. COPD: Not in exacerbation. Tobacco abuse: Consulted to quit smoking, she does not want nicotine patches DVT prophylaxis: scd - Time Spent with Patient Total time spent is greater than 50% in coordination of care (as documented) at patient's floor/unit and/or counseling patient: Plan of Care Discussed with: patient Internal Medicine: Result - Labs CBC & Chem 7: 07/12/19 02:36 07/12/19 02:36 Labs: Short CBC 07/12/19 Range/Units 02:36 WBC 5.3 (4.3-11.1) K/mcL Hgb 11.9 (11.5-15.4) g/dL Hct 38.7 (35.3-44.9) % Plt Count 278 (140-400) K/mcL BMP 07/12/19 02:36 Sodium 139 Potassium 3.7 Chloride 106 Carbon Dioxide 25 BUN 13 Creatinine 0.79 Glucose 129 H Calcium 8.2 L Consult Discharge Plan - Plan Referrals: Milton Deng [Primary Care Provider] - (1) Pancreatitis Qualifiers: Chronicity: acute Pancreatitis type: idiopathic Acute pancreatitis complication: no infection or necrosis Qualified Code(s): K85.00 - Idiopathic acute pancreatitis without necrosis or infection
[2019-07-12] MEDS: *HR* HYDROcodone/Acet 5/325 mg TABLET PO PRN ×3 (12:52→23:59)
[2019-07-12] MEDS ORDERED: Ringers Solution, Lactated 1,000 ML IVC SCH (19:09)
[2019-07-13] MEDS ORDERED: hydrALAZINE 10 MG TABLET PO ONE (00:18)
[2019-07-13] MEDS ORDERED: Ringers Solution, Lactated 1,000 ML IVC SCH (04:43)
[2019-07-13] MEDS: *HR* Heparin 5,000 UNIT/ML VIAL SQ SCH ×2 (05:01→17:27)
[2019-07-13 05:24] LABS: Hematocrit 41.4 % (35.3-44.9); Mean Corpuscular HGB Conc 31.4 g/dL (31.6-35.5); Mean Corpuscular Hemoglobin 27.2 pg (28.0-33.3); Mean Corpuscular Volume 86.6 fL (83.0-100.0); Mean Platelet Volume 8.7 fL (9.4-12.4); Platelet Count 294 K/mcL (140-400); Red Blood Count 4.78 M/mcL (3.82-4.97); Red Cell Distribution Width 14.2 % (11.5-14.5)
[2019-07-13 05:49] LABS: BUN/Creatinine Ratio 10 (6-26); Blood Urea Nitrogen 8 mg/dL (8-23); Calcium 9.1 mg/dL (8.6-10.3); Carbon Dioxide 28 mEq/L (23-29); Chloride 99 mEq/L (98-107); Glucose 115 mg/dL (70-105); Osmolality,Calculated 285 (280-300); Potassium 3.5 mEq/L (3.5-5.1); Sodium 138 mEq/L (136-145); eGFR For African Americans > 60 (> 60); eGFR For Non-African Americans > 60 (> 60)
[2019-07-13] MEDS: Lisinopril 20 MG TABLET PO SCH (07:52)
[2019-07-13] MEDS: *HR* HYDROcodone/Acet 5/325 mg TABLET PO PRN ×3 (07:57→16:58)
[2019-07-13] MEDS: Insulin LISPRO 300 UNITS/3 ML VIAL SQ SCH ×4 (08:00→20:45)
--- NOTE | 2019-07-13 12:53 | Internal Med Progress Note ---
Hospitalist Progress Note - Encounter Date of Encounter: 07/13/19 Time of Encounter: 12:50 - Subjective Interval History: Patient was seen and examined at bedside today. Patient complaining of upper abdominal pain in the epigastric region. Pain is 6-7/10 in severity, aching, non-radiating,worsens with food and relieved with pain medication. She denies any fever and chills. She denies any nausea and vomiting. - Exam Vitals: Temp Pulse Resp BP Pulse Ox 98.0 F 61 15 158/89 96 07/13/19 10:15 07/13/19 10:15 07/13/19 10:15 07/13/19 10:15 07/13/19 10:15 Exam: General: Patient is alert, oriented 3. mild distress Head: Atraumatic, normal inspection, normocephalic. Respiratory: No respiratory distress, rhonchi, or wheezes noted. Cardiovascular: Regular rate and regular rhythm, GI: Soft, nondistended, normal bowel sounds. mild to moderate epigastric tenderness with palpation. No guarding or rebound. Extremities:No joint swelling, pedal edema, or tenderness noted. Neurological: Alert, oriented 3, no focal deficits. Psychiatric: normal affect, normal mood. Skin: Dry, intact, warm. Normal color. No rashes. - Assessment and Plan (1) Pancreatitis Current Visit: Yes Status: Acute Assessment and Plan: Patient presents with abdominal pain and CT scan reveal pancreatitis. This is patient's second episode in one month. - IV hydration - Pain management - We will advance diet as tolerated today. - To need to monitor. If patient does not tolerate by mouth diet and will consider NG tube for feeding. (2) S/P ureteral stent placement Current Visit: No Status: Chronic Assessment and Plan: Patient is status post ureteral stent placement. Urology is following. CT scan did not show any hydronephrosis. (3) Alcohol abuse Current Visit: Yes Status: Acute Assessment and Plan: Patient is on CIWA. We will continue to monitor. (4) Tobacco abuse Current Visit: Yes Status: Chronic Assessment and Plan: Patient declines nicotine patch (5) Hypokalemia Current Visit: Yes Status: Resolved Assessment and Plan: Potassium of 3.4. We will replace and monitor. BMP tomorrow. (6) DM type 2 (diabetes mellitus, type 2) Current Visit: Yes Status: Chronic Assessment and Plan: T Diagnosis. HbA1c of 9.3. Currently patient on sliding scale insulin. We will continue to monitor. Patient will likely need oral medication for diabetes on discharge. (7) DVT prophylaxis Current Visit: Yes Status: Acute Assessment and Plan: Subcutaneous heparin DVT Prophylaxis: SC Heparin - Time Spent with Patient Total time spent is greater than 50% in coordination of care (as documented) at patient's floor/unit and/or counseling patient: 25 - 35 minutes Plan of Care Discussed with: patient Internal Medicine: Result - Labs CBC & Chem 7: 07/13/19 05:12 07/13/19 05:12 Labs: Short CBC 07/13/19 Range/Units 05:12 WBC 6.0 (4.3-11.1) K/mcL Hgb 13.0 (11.5-15.4) g/dL Hct 41.4 (35.3-44.9) % Plt Count 294 (140-400) K/mcL BMP 07/13/19 05:12 Sodium 138 Potassium 3.5 Chloride 99 Carbon Dioxide 28 BUN 8 Creatinine 0.77 Glucose 115 H Calcium 9.1 Consult Discharge Plan - Plan Referrals: Milton Deng [Primary Care Provider] - (1) Pancreatitis Qualifiers: Chronicity: acute Pancreatitis type: idiopathic Acute pancreatitis complication: no infection or necrosis Qualified Code(s): K85.00 - Idiopathic acute pancreatitis without necrosis or infection (6) DM type 2 (diabetes mellitus, type 2) Qualifiers: Diabetes mellitus flatbed stitcher insulin use: without flatbed stitcher use Diabetes mellitus complication status: without complication Qualified Code(s): E11.9 - Type 2 diabetes mellitus without complications
[2019-07-13] MEDS: Pantoprazole 40 MG VIAL IVP SCH (13:54)
[2019-07-14] MEDS: *HR* HYDROcodone/Acet 5/325 mg TABLET PO PRN ×2 (01:12→07:13)
[2019-07-14 03:38] LABS: Basophils # 0.1 K/mcL (0.0-0.2); Eosinophils # 0.2 K/mcL (0.0-0.6); Eosinophils % 4.2 %; Hematocrit 40.7 % (35.3-44.9); Hemoglobin 12.8 g/dL (11.5-15.4); Immature Granulocytes % 0.2 % (0-4); Lymphocytes # 1.5 K/mcL (0.6-4.6); Lymphocytes % 29.3 %; Mean Corpuscular HGB Conc 31.4 g/dL (31.6-35.5); Mean Corpuscular Hemoglobin 27.7 pg (28.0-33.3); Mean Corpuscular Volume 88.1 fL (83.0-100.0); Mean Platelet Volume 8.7 fL (9.4-12.4); Monocytes # 0.6 K/mcL (0.0-1.3); Monocytes % 11.7 %; Neutrophils # 2.7 K/mcL (1.6-8.9); Platelet Count 269 K/mcL (140-400); Red Blood Count 4.62 M/mcL (3.82-4.97); Red Cell Distribution Width 14.4 % (11.5-14.5); Segmented Neutrophils % 53.6 %
[2019-07-14 03:57] LABS: Amylase 32 Units/L (29-103); BUN/Creatinine Ratio 11 (6-26); Blood Urea Nitrogen 10 mg/dL (8-23); Calcium 9.2 mg/dL (8.6-10.3); Carbon Dioxide 28 mEq/L (23-29); Chloride 99 mEq/L (98-107); Glucose 200 mg/dL (70-105); Lipase 169 Units/L (11-82); Osmolality,Calculated 287 (280-300); Potassium 3.3 mEq/L (3.5-5.1); Sodium 136 mEq/L (136-145); eGFR For African Americans > 60 (> 60); eGFR For Non-African Americans > 60 (> 60)
[2019-07-14] MEDS: *HR* Heparin 5,000 UNIT/ML VIAL SQ SCH (05:27)
[2019-07-14 08:07] VITALS: BP 147/87
[2019-07-14] MEDS: Insulin LISPRO 300 UNITS/3 ML VIAL SQ SCH (08:09)
[2019-07-14] MEDS: Lisinopril 20 MG TABLET PO SCH (08:19)
[2019-07-14] MEDS: Pantoprazole 40 MG VIAL IVP SCH (08:19)
--- NOTE | 2019-07-14 09:32 | Discharge Summary ---
- NOTES TO OUTPATIENT PROVIDER Notes to Outpatient Provider: Patient was admitted for acute pancreatitis. Most likely alcohol induced. Follow-up the patient outpatient. Patient will be discharged home in stable condition with pain medication supply for one week. Orders not resulted at time of discharge: Pending orders 07/11/19 15:10 SEFERINO IgG NEY rflx IFA Routine IgG Subclasses 1,2,3,4 Routine Estimated PT Needs at Discharge: None Date of Encounter: 07/14/19 Time of Encounter: 09:27 - Discharge Diagnosis (1) Pancreatitis Priority: Primary Status: Acute Qualifiers: Chronicity: acute Pancreatitis type: idiopathic Acute pancreatitis complication: no infection or necrosis Qualified Code(s): K85.00 - Idiopathic acute pancreatitis without necrosis or infection (2) S/P ureteral stent placement Priority: Secondary Status: Chronic (3) Alcohol abuse Priority: Secondary Status: Acute (4) Tobacco abuse Priority: Secondary Status: Chronic (5) Hypokalemia Priority: Secondary Status: Resolved (6) DM type 2 (diabetes mellitus, type 2) Priority: Secondary Status: Chronic Qualifiers: Diabetes mellitus assistant professor of history insulin use: without assistant professor of history use Diabetes mellitus complication status: without complication Qualified Code(s): E11.9 - Type 2 diabetes mellitus without complications (7) DVT prophylaxis Priority: Secondary Status: Acute Hospital course: Ms. Douglas is a 63 year old female with history of on-call abuse was hospitalized for pancreatitis likely alcohol induced. And improved well over the hospital course. Patient was discharged in stable condition. Patient will discharge on pain medication and proton pump inhibitor. Patient also found to have new onset diabetes while hospitalization. Patient was discharged on one- week supply with metformin. Follow-up with primary care provider within 3 week. Discharge discussed with: patient, nurse, social work, case management - Time Spent with Patient Total time spent providing and/or coordinating discharge services: 35 Time spent: Greater than 30 minutes - Discharge Medications Prescriptions: New metFORMIN [Glucophage] 500 mg PO BIDWM 7 Days #15 tablet HYDROcodone/Acet 5/325 mg [[place] 5-325 mg] 1 tab PO Q6H PRN 7 Days #30 tablet PRN Reason: Breakthrough Pain Omeprazole [PriLOSEC] 40 mg PO DAILY 7 Days #7 cap Continued Metoprolol Tartrate 75 mg PO BID Lisinopril [Zestril] 40 mg PO DAILY Gabapentin 800 mg PO TID PRN PRN Reason: Pain Discontinued cephALEXin [Keflex] 500 mg PO BID Hydrocodone/Acetaminophen [Hydrocodon-Acetaminophen 5-325] 1 tab PO Q6H PRN PRN Reason: Pain Home Medications: Gabapentin 800 mg PO TID PRN 06/24/19 [History] Lisinopril [Zestril] 40 mg PO DAILY 06/24/19 [History] Metoprolol Tartrate 75 mg PO BID 06/24/19 [History] HYDROcodone/Acet 5/325 mg [[place] 5-325 mg] 1 tab PO Q6H PRN 7 Days #30 tablet 07/14/19 [Rx] Omeprazole [PriLOSEC] 40 mg PO DAILY 7 Days #7 cap 07/14/19 [Rx] metFORMIN [Glucophage] 500 mg PO BIDWM 7 Days #15 tablet 07/14/19 [Rx] Allergies/Adverse Reactions: Allergy/AdvReac Type Severity Reaction Status Date / Time ibuprofen [From Motrin] Allergy Anaphylaxis Verified 07/11/19 09:48 Iodinated Contrast Media Allergy Unresponsiv Verified 07/11/19 09:48 e prochlorperazine Allergy Swelling Verified 07/11/19 09:48 [From Compazine] of Lip/Tongue/Throat Date of admission: 07/12/19 12:01 Primary care physician: Milton Deng Consults: 07/10/19 22:34 Consult to Urology [CONS] Routine Consulting Provider: Urology Leeann Reason for Consult: Patient had ureteral stent placed, scheduled to have it r emoved 07/11/19 Call Completed: No 07/11/19 07:41 Consult to Gastroenterology [CONS] Routine Consulting Provider: Gastroenterology [place] Reason for Consult: recurrent pancreatitis Call Completed: No 07/12/19 08:33 Consult to Optics Technical Officer [CONS] Routine Reason for SW Consult: etoh abuse Discharging clinician: Guero Dumont - Constitutional Vitals: Temp Pulse Resp BP Pulse Ox 98.0 F 63 16 147/87 93 07/14/19 08:02 07/14/19 08:02 07/14/19 08:02 07/14/19 08:02 07/14/19 08:30 General appearance: Present: cooperative, mild distress, A&O X 3, pleasant, answers questions appropriately Exam: General: Patient is alert, oriented 3. mild distress Head: Atraumatic, normal inspection, normocephalic. Respiratory: No respiratory distress, rhonchi, or wheezes noted. Cardiovascular: Regular rate and regular rhythm, GI: Soft, nondistended, normal bowel sounds. mild to moderate epigastric tenderness with palpation. No guarding or rebound. Extremities:No joint swelling, pedal edema, or tenderness noted. Neurological: Alert, oriented 3, no focal deficits. Psychiatric: normal affect, normal mood. Skin: Dry, intact, warm. Normal color. No rashes. - Patient Status Disposition: Home, Self-Care Condition: Good Overall status at discharge: patient is progressing back to baseline - Discharge Instructions Follow Up With: Milton Deng [Primary Care Provider] - - Diet and Activity Activity: increase activity as tolerated Diet: advance to your usual diet, diabetic diet, low salt diet
[2019-07-14 09:56] LABS: ANA IgG by ELISA NONE DETECTED (None Detected)
[2019-07-15 09:45] LABS: Immunoglobulin G Subclass 1 258 mg/dL (240-1118); Immunoglobulin G Subclass 2 89 mg/dL (124-549); Immunoglobulin G Subclass 3 171 mg/dL (21-134); Immunoglobulin G Subclass 4 4 mg/dL (1-123)
== END 2019-07-14 13:11 | disposition home or self-care (01) | DRG 440 ==
LOC: 3ANU → SUATTDRO 19:23
PROVIDERS: ADMIT Student in an Organized Health Care Education/Training Program; ATTEND Family Medicine